=== PATIENT | male | born 1960 | race Caucasian/White ===

== ENCOUNTER 2020-10-07 15:41 | Emergency (ER) | payer OTHER ==
[2020-10-07] MEDS ORDERED: IPRATROPIUM/ALBUTEROL 0.5-2.5 MG/3 ML AMPUL NEB ONE (17:22)
--- NOTE | 2020-10-07 17:31 | ER Document Report ---
ED Medical Screen (RME) - General Chief Complaint: Shortness Of Breath Stated Complaint: BREATHING ISSUES Time Seen by Provider: 10/07/20 17:18 - HPI Notes: 10/07/20 17:22 60-year-old male with a history of testing positive for Covid 9 days ago presents the emergency room for evaluation of chest heaviness, shortness of breath, elevated temperatures over 102, dry cough fatigue that has become progressively worse over the last 5 days. Has tried [id number] Tylenol and ibuprofen without relief. States he tested positive for Covid at the [facility] where they did a drive-through Covid testing 9 days ago. Denies any nausea vom iting diarrhea. Patient is a non-smoker. Reports he did have asthma when he was a child. I have greeted and performed a rapid initial assessment of this patient. A comprehensive ED assessment and evaluation of the patient, analysis of test results and completion of the medical decision making process will be conducted by additional ED providers. PHYSICAL EXAMINATION: GENERAL: Well-appearing, well-nourished and in no acute distress. CV: s1, s2 regular LUNGS: Diminished breath sounds throughout The patient was evaluated during a global COVID-19 pandemic and that diagnosis was suspected/considered upon their initial presentation. Their evaluation, treatment and testing was consistent with current guidelines for patients who present with complaints or symptoms and may be related to COVID-19. 10/07/20 17:41 - Related Data Home Medications: Vitamin D. mucinex. nasonex Past Medical History - Social History Chew tobacco use (# tins/day): No Frequency of alcohol use: None Drug Abuse: None Physical Exam - Vital signs Vitals: Temp Pulse Resp BP Pulse Ox 99.4 F 89 20 151/90 H 95 10/07/20 16:10 10/07/20 16:10 10/07/20 16:10 10/07/20 16:10 10/07/20 16:10 Course - Vital Signs Vital signs: Temp Pulse Resp BP Pulse Ox 99.4 F 89 20 151/90 H 95 10/07/20 16:10 10/07/20 16:10 10/07/20 16:10 10/07/20 16:10 10/07/20 16:10
[2020-10-07 18:16] LABS: ABSOLUTE MONOCYTES (AUTO) 0.5 10^3/uL (0.1-1.4); ABSOLUTE NEUT (AUTO) 3.8 10^3/uL (1.7-8.2); BASOPHILS % (AUTO) 0.6 % (0-2); EOSINOPHILS % (AUTO) 0.4 % (0-6); HEMATOCRIT 39.9 % (37.9-51.0); HEMOGLOBIN 14.3 g/dL (13.5-17.0); LYMPHOCYTES % (AUTO) 18.4 % (13-45); MEAN CORPUSCULAR HEMOGLOBIN 30.7 pg (27.0-33.4); MEAN CORPUSCULAR HGB CONC 35.9 g/dL (32.0-36.0); MEAN CORPUSCULAR VOLUME 86 fl (80-97); MONOCYTES % (AUTO) 8.7 % (3-13); PLATELET COUNT 208 10^3/uL (150-450); RED BLOOD COUNT 4.66 10^6/uL (4.35-5.55); RED CELL DISTRIBUTION WIDTH 12.5 % (11.5-14.0); SEGMENTED NEUTROPHILS % (AUTO) 71.9 % (42-78); TOTAL CELLS COUNTED % (AUTO) 100 %; WHITE BLOOD COUNT 5.2 10^3/uL (4.0-10.5)
--- NOTE | 2020-10-07 18:22 | ER Document Report ---
ED General - General Chief Complaint: Shortness Of Breath Stated Complaint: BREATHING ISSUES Time Seen by Provider: 10/07/20 17:18 - HPI Notes: 60-year-old male presents with cough, congestion shortness of breath. Patient is known to be Covid positive. He has been symptomatic for 10 days, he had positive swab 9 days ago. He reports that the majority of his symptoms have improved. However now for the past 4 to 5 days he has had chest congestion, described as a heaviness, fatigue and fevers occurring every evening with tem perature 102F. He has been taking Tylenol, Motrin and Mucinex. He states that he had a telehealth visit today and was advised to come to the emergency department for evaluation. He states he is otherwise healthy. He does not smoke. - Related Data Allergies/Adverse Reactions: No Known Allergies Allergy (Verified 10/07/20 18:06) Home Medications: Vitamin D. mucinex. nasonex Past Medical History - General Information source: Patient - Social History Smoking Status: Never Smoker Chew tobacco use (# tins/day): No Frequency of alcohol use: None Drug Abuse: None Family History: Reviewed & Not Pertinent Review of Systems - Review of Systems Constitutional: Fever EENT: No symptoms reported Cardiovascular: denies: Chest pain Respiratory: Cough, Short of breath Gastrointestinal: denies: Abdominal pain, Diarrhea, Vomiting Genitourinary: No symptoms reported Male Genitourinary: No symptoms reported Musculoskeletal: denies: Muscle pain Skin: No symptoms reported Hematologic/Lymphatic: No symptoms reported Neurological/Psychological: No symptoms reported Physical Exam - Vital signs Vitals: Temp Pulse Resp BP Pulse Ox 99.4 F 89 20 151/90 H 95 10/07/20 16:10 10/07/20 16:10 10/07/20 16:10 10/07/20 16:10 10/07/20 16:10 - General General appearance: Appears well, Alert In distress: None - HEENT Head: Normocephalic, Atraumatic Eyes: No: Scleral icterus Pupils: PERRL - Respiratory Respiratory status: No: Tachypnea Breath sounds: Normal, Nonproductive cough - Cardiovascular Rhythm: Regular Heart sounds: Normal auscultation - Abdominal Tenderness: Nontender - Extremities General lower extremity: No: Edema - Neurological Neuro grossly intact: Yes Cognition: Normal Orientation: AAOx4 - Psychological Associated symptoms: Normal affect - Skin Skin Temperature: Warm Course - Re-evaluation Re-evalutation: 60-year-old male Covid positive on day 10 of illness, here with a few days of cough/shortness of breath, chest congestion. On exam he is alert and well- appearing, able to speak in full sentences, overall good air movement. He did receive a DuoNeb prior to my evaluation which she reports has greatly helped his symptoms. He is not hypoxic. Chest x-ray does show evidence of mild bilateral opacities, I discussed with him that he can be started on a Z-Luigi to treat a possible secondary infection. He had labs done through triage which was grossly unremarkable. Discussed continued symptomatic care at home, including albuterol MDI. Return precautions given, stable at time of discharge. - Vital Signs Vital signs: Temp Pulse Resp BP Pulse Ox 99.4 F 73 18 136/75 H 99 10/07/20 16:10 10/07/20 19:23 10/07/20 19:23 10/07/20 19:23 10/07/20 19:23 - Laboratory Results Result Diagrams: 10/07/20 17:56 10/07/20 17:56 Laboratory Results Interpreted: 10/07/20 17:56 Glucose 111 H Critical Laboratory Results Reviewed: No Critical Results - Radiology Results Critical Radiology Results Reviewed: No Critical Results - EKG Interpretation by Me Additional EKG results interpreted by me: EKG is interpreted by me. Normal sinus rhythm, rate 68. Narrow QRS, QTC within normal limits. No ST segment elevation or depression. Discharge - Discharge Clinical Impression: COVID-19 virus infection Disposition: HOME, SELF-CARE Additional Instructions: Begin Z-Luigi/azithromycin. He may use the inhaler every 4 hours as needed, can actually increase up to 4 puffs. Continue further symptomatic control with ibuprofen, Tylenol and guaifenesin peer return to the emergency department for any concerning worsening symptoms. Prescriptions: Benzonatate [Tessalon Perles 100 mg Capsule] 100 mg PO Q8HP PRN #30 capsule PRN Reason: Albuterol Sulfate [Proair HFA Inhalation Aerosol 8.5 gm MDI] 2 puff IH Q4H PRN #1 mdi PRN Reason: Azithromycin [Zithromax 250 mg Tablet] 250 mg PO ASDIR PRN #6 tablet PRN Reason:
[2020-10-07 18:34] LABS: ALBUMIN 4.3 g/dL (3.5-5.0); ALKALINE PHOSPHATASE 60 U/L (38-126); ANION GAP 7 (5-19); ASPARTATE AMINO TRANSFERASE 29 U/L (17-59); BILIRUBIN,DIRECT 0.2 mg/dL (0.0-0.4); BILIRUBIN,TOTAL 0.4 mg/dL (0.2-1.3); BLOOD UREA NITROGEN 16 mg/dL (7-20); CARBON DIOXIDE 30 mmol/L (22-30); CHLORIDE 101 mmol/L (98-107); GLUCOSE 111 mg/dL (75-110); POTASSIUM 4.5 mmol/L (3.6-5.0); TOTAL PROTEIN 7.5 g/dL (6.3-8.2)
[2020-10-07] MEDS ORDERED: BENZONATATE 100 MG CAPSULE PO ONE (18:51)
[2020-10-07] MEDS ORDERED: GUAIFENESIN 600 MG TABLET.SA PO ONE (18:51)
--- NOTE | 2020-10-07 18:58 | RADIOLOGY REPORT (SQ) ---
EXAM DESCRIPTION: CHEST SINGLE VIEW IMAGES COMPLETED DATE/TIME: 10/07/2020 6:11 pm REASON FOR STUDY: cough, chest pain, + covid x9days ago, +fevers COMPARISON: None. EXAM PARAMETERS: NUMBER OF VIEWS: One view. TECHNIQUE: Single frontal radiographic view of the chest acquired. RADIATION DOSE: NA LIMITATIONS: None. FINDINGS: LUNGS AND PLEURA: Patchy vague bilateral perihilar opacities are suggested. No pneumotho rax or pleural effusion. MEDIASTINUM AND HILAR STRUCTURES: No masses. Contour normal. HEART AND VASCULAR STRUCTURES: Heart normal in size. Normal vasculature. BONES: No acute findings. HARDWARE: None in the chest. OTHER: No other significant finding. IMPRESSION: 1. Vague patchy bilateral perihilar opacities are suggested. TECHNICAL DOCUMENTATION: JOB ID: [id number] [employer]- All Rights Reserved Reading location - IP/workstation name: [email or web address]
[2020-10-07 19:25] VITALS: BP 136/75
--- NOTE | 2020-10-08 00:44 | EKG REPORT ---
SEVERITY:- NORMAL ECG - SINUS RHYTHM : Confirmed by: Nhan Jeffers 08-Oct-2020 00:44:06
== END 2020-10-07 19:25 | disposition home or self-care (01) ==
LOC: ER 15:41
DX: U07.1 COVID-19 (principal); R06.02 Shortness of breath; R05 Cough; R09.81 Nasal congestion; R09.89 Other specified symptoms and signs involving the circulatory and respiratory systems; R53.83 Other fatigue; R50.9 Fever, unspecified; Z79.899 Other long term (current) drug therapy
CPT/HCPCS: 36415; 71045; 80053; 84484; 85025; 93005; 93010; 94640; 99285